=== PATIENT | male | born 1945 | race Two or more races ===

== ENCOUNTER 2018-05-09 18:09 | Emergency (ER) | payer OTHER ==
[~2018-05-09] VITALS: Ht 170.2 cm; Wt 79.8 kg
[2018-05-09 18:22] VITALS: Ht 170.2 cm; Wt 79.8 kg
[2018-05-09 19:12] VITALS: BP 121/59
== END 2018-05-09 19:12 | disposition home or self-care (01) ==
LOC: ED 18:09
DX: K04.7 Periapical abscess without sinus (principal); E11.9 Type 2 diabetes mellitus without complications; E78.00 Pure hypercholesterolemia, unspecified

== ENCOUNTER 2018-05-21 16:10 | Inpatient (IN) | payer OTHER ==
[~2018-05-21] VITALS: Ht 167.6 cm; Wt 78.0 kg
[2018-05-21 17:05] LABS: BASOPHIL % 0.3 % (0-2); PLATELET COUNT 259 x10^3mcL (130-400); RED CELL DISTRIBUTION WIDTH 12.8 % (11.5-14.5)
[2018-05-21 17:51] LABS: CALCIUM 8.7 mg/dL (8.5-10.1); CARBON DIOXIDE 24.1 mmol/L (21-32); CHLORIDE SERUM 106 mmol/L (98-107); CREATININE SERUM 2.3 mg/dL (0.7-1.3); GLUCOSE SERUM 165 mg/dL (74-106); POTASSIUM SERUM 4.9 mmol/L (3.5-5.1); SODIUM SERUM 138 mmol/L (136-145)
[2018-05-21 17:57] LABS: ALBUMIN 3.8 g/dL (3.4-5.0); ALKALINE PHOSPHATASE 56 U/L (46-116); ALT/SGPT 26 U/L (16-63); AST/SGOT 20 U/L (15-37); TOTAL PROTEIN, SERUM 6.7 g/dL (6.4-8.2)
[2018-05-21] MEDS ORDERED: ELIQUIS5 M1 (18:44)
[2018-05-21] MEDS ORDERED: BYSTOLIC10 M1 (18:44)
[2018-05-21] MEDS ORDERED: BYSTOLIC10 M1 PO (18:45)
[2018-05-21] MEDS ORDERED: ELIQUIS5 MG PO (18:45)
[2018-05-21] MEDS ORDERED: METFORMIN HCL1000 MG PO (18:46)
[2018-05-21] MEDS ORDERED: AMLODIPINE BESY10 M2 PO (18:46)
[2018-05-21] MEDS ORDERED: LIPITOR80 MG GT (18:46)
[2018-05-21] MEDS ORDERED: ASPIR 8181 MG PO (18:47)
[2018-05-21] MEDS ORDERED: ISOSORBIDE MONO30 MG PO (18:47)
[2018-05-21] MEDS ORDERED: COZAAR100 MG PO (18:48)
[2018-05-21 19:09] LABS: MAGNESIUM 1.9 mg/dL (1.8-2.4); PHOSPHOROUS 3.6 mg/dL (2.5-4.9)
[2018-05-21 19:16] LABS: T3 TOTAL 1.07 ng/mL
[2018-05-21 19:18] LABS: FREE T4 0.94 ng/dL (0.76-1.46); FREE THYROXINE INDEX 2.8 ug/dL (1.4-4.5); T4(THYROXINE) 8.5 ug/dL (4.7-13.3)
[2018-05-21 19:59] VITALS: BP 125/56
[2018-05-22 05:11] VITALS: BP 106/47
[2018-05-22 07:28] LABS: CALCIUM 8.5 mg/dL (8.5-10.1); CARBON DIOXIDE 20.1 mmol/L (21-32); CHLORIDE SERUM 107 mmol/L (98-107); CREATININE SERUM 1.7 mg/dL (0.7-1.3); GLUCOSE SERUM 99 mg/dL (74-106); PHOSPHOROUS 4.2 mg/dL (2.5-4.9); SODIUM SERUM 141 mmol/L (136-145)
[2018-05-22 08:35] LABS: BASOPHIL % 0.3 % (0-2); PLATELET COUNT 204 x10^3mcL (130-400)
[2018-05-22 09:07] VITALS: BP 96/60
[2018-05-22 14:10] VITALS: BP 136/48
== END 2018-05-22 14:50 | disposition left against medical advice (07) | DRG 205 ==
LOC: ED 16:10 → DU 18:05
PROVIDERS: Emergency Medicine; Internal Medicine
DX: M94.0 Chondrocostal junction syndrome [Tietze] (principal); N17.0 Acute kidney failure with tubular necrosis; E11.9 Type 2 diabetes mellitus without complications; D64.9 Anemia, unspecified; I48.2 Chronic atrial fibrillation; E78.5 Hyperlipidemia, unspecified; Z79.82 Long term (current) use of aspirin; Z79.4 Long term (current) use of insulin; Z68.27 Body mass index [BMI] 27.0-27.9, adult; Z87.891 Personal history of nicotine dependence; Z86.73 Personal history of transient ischemic attack (TIA), and cerebral infarction without residual deficits
CPT/HCPCS: 82962; 83880; 84439; J7030; Q0092